=== PATIENT | male | born 1970 | race Caucasian/White ===

== ENCOUNTER 2023-12-21 16:31 | Emergency (ER) | payer SELFPAY ==
[2023-12-21 18:06] LABS: HEMATOCRIT 36.5 % (42.0-52.0); HEMOGLOBIN 12.1 gm/dl (14.0-18.0); MEAN CORPUSCULAR HEMOGLOBIN 27.5 pg (28.0-32.0); MEAN CORPUSCULAR HGB CONC 33.2 g/dl (32.0-36.0); MEAN PLATELET VOLUME 8.3 fl (9.4-12.4); PLATELET COUNT,PLT 350 K/mm3 (150-400); WHITE BLOOD CELL COUNT,WBC 44.31 K/mm3 (3.9-11.3)
[2023-12-21 18:28] LABS: A/G RATIO 0.5 (1-2); ALBUMIN 2.3 g/dl (3.4-5.0); ANION GAP 14.4 (5-15); BILIRUBIN TOTAL 0.7 mg/dL (0.2-1.0); BUN/CREATININE RATIO 32.5 (14-18); CREATININE 0.8 mg/dL (0.7-1.3); EST CRCL DRUG DOSING (CG) 90.44 mL/min; MAGNESIUM 1.3 mg/dL (1.8-2.4); POTASSIUM,K 4.4 mEq/L (3.5-5.1); PROTEIN TOTAL,TP 6.9 g/dl (6.4-8.2)
[2023-12-21 18:32] LABS: CALCIUM 13.5 mg/dL (8.5-10.1)
[2023-12-21 19:07] LABS: BAND PERCENT MAN 0 % (0-10); BASOPHILS PERCENT MAN 0 (0.2-1.2); EOSINOPHILS PERCENT MAN 0 % (0.8-7.0); LYMPHOCYTES PERCENT MAN 51 % (20-40); MONOCYTES PERCENT MAN 0 % (2-10)
[2023-12-21 19:09] LABS: PLATELET COUNT ESTIMATE ADEQUATE
[2023-12-21] MEDS: Sodium Chloride 0.9% 1,000 ML IV ONE (19:14)
[2023-12-21 19:16] LABS: LYMPHOCYTES % ATYPICAL MANUAL 9 %
[2023-12-21] MEDS: Magnesium Sulfate/Water 2 GM in Premix Bag 1 BAG IV ONE (19:16)
[2023-12-21] MEDS: Sodium Chloride 0.9% 10 ML Syringe FLUSH PRN (19:30)
[2023-12-21] MEDS: Sodium Chloride 0.9% 10 ML Syringe FLUSH ONE (19:51)
[2023-12-21] MEDS: Iopamidol 612 MG/ML 100 ML Bottle IVPUSH ONE (19:51)
[2023-12-21] MEDS: Acetaminophen/oxyCODONE 325-5 MG Tab PO ONE (21:19)
[2023-12-22 13:47] LABS: NEUTROPHILS% 23 % (41-71)
== END 2023-12-21 21:28 | disposition home or self-care (01) ==
LOC: JD.ED 16:31
DX: C79.9 Secondary malignant neoplasm of unspecified site (principal); Z79.899 Other long term (current) drug therapy
CPT/HCPCS: 36415; 71260; 72128; 72131; 74177; 80053; 82550; 83735; 85007; 85027; 85046; 96365; 96366; 99284; A9270; J3475; J3490; J7030; Q9967; 99285

== ENCOUNTER 2023-12-31 14:08 | Emergency (ER) | payer SELFPAY ==
[2023-12-31] MEDS: Sodium Chloride 0.9% 1,000 ML IV ONE ×2 (15:01→17:28)
[2023-12-31] MEDS: Pantoprazole 80 MG in Sodium Chloride 0.9% 100 ML IV ONE (15:01)
[2023-12-31] MEDS: Ondansetron 4 MG/2 ML SDV IVPUSH ONE (15:01)
[2023-12-31] MEDS: Albuterol/Ipratropium 3.0-0.5 MG/3 ML Neb Soln NEB ONE (15:01)
[2023-12-31 15:05] LABS: HEMATOCRIT 35.3 % (42.0-52.0); HEMOGLOBIN 11.7 gm/dl (14.0-18.0); IMMATURE GRAN ABSOLUTE AUTO 0.89 K/mm3 (0.00-0.05); IMMATURE GRAN PERCENT AUTO 1.3 % (0.0-0.4); LYMPHOCYTES ABSOLUTE AUTO 41.2 K/mm3 (1.0-4.8); LYMPHOCYTES PERCENT AUTO 59.7 % (24.0-44.0); MEAN CORPUSCULAR HEMOGLOBIN 27.3 pg (28.0-32.0); MEAN CORPUSCULAR HGB CONC 33.1 g/dl (32.0-36.0); MEAN CORPUSCULAR VOLUME 82.3 fl (83.0-99.0); MEAN PLATELET VOLUME 9.1 fl (9.4-12.4); MONOCYTES ABSOLUTE AUTO 1.3 K/mm3 (0.0-0.8); MONOCYTES PERCENT AUTO 1.9 % (0.0-8.0); NEUTROPHILS ABSOLUTE AUTO 25.5 K/mm3 (1.8-7.7); NEUTROPHILS PERCENT AUTO 37.1 % (41.0-71.0); PLATELET COUNT,PLT 385 K/mm3 (150-400); RED BLOOD CELL COUNT 4.29 M/mm3 (4.52-5.90)
[2023-12-31] MEDS: Sodium Chloride 0.9% 10 ML Syringe FLUSH ONE (15:07)
[2023-12-31 15:09] LABS: APPEARANCE,URINE CLEAR (Clear); BILIRUBIN,URINE NEGATIVE (Negative); COLOR,URINE LIGHT YELLOW (Yellow); GLUCOSE,URINE 2+ (Negative); KETONES,URINE 2+ (Negative); LEUKOCYTE ESTERASE,URINE NEGATIVE (Negative); NITRITE,URINE NEGATIVE (Negative); OCCULT BLOOD,URINE 3+ (Negative); PH,URINE 5.5 (5.0-8.0); PROTEIN,URINE NEGATIVE (Negative)
[2023-12-31 15:15] LABS: INR 1.21; PROTHROMBIN TIME 12.7 SECONDS (9.7-12.0)
[2023-12-31 15:16] LABS: BASE EXCESS ARTERIAL 0.5 (-2-2.0); BICARBONATE,ARTERIAL 23.4 meq/L (22.0-26.0); O2 SATURATION ARTERIAL 95.8 % (96.0-97.0); PCO2 ARTERIAL 32.9 mmHg (35.0-45.0)
[2023-12-31] MEDS: cefTRIAXone 1 GM in Sodium Chloride 0.9% 100 ML IV ONE (15:19)
[2023-12-31] MEDS: Diphtheria,Pertussis(Acell),Tetanus Vaccine 0.5 ML Syringe IM ONE (15:20)
[2023-12-31 15:21] LABS: BARBITURATE SCREEN,URINE NEGATIVE (CUTOFF=200); BENZODIAZEPINES SCREEN,URINE NEGATIVE (CUTOFF=150); BUPRENORPHINE SCREEN,URINE NEGATIVE (CUTOFF=10); METHADONE SCREEN, URINE NEGATIVE (CUT0FF=200); METHAMPHETAMINES SCREEN, URINE NEGATIVE (CUTOFF=500); OXYCODONE SCREEN,URINE NEGATIVE (CUT0FF=100); THC SCREEN,URINE 20 NG/ML NEGATIVE (CUTOFF=50)
[2023-12-31 15:29] LABS: A/G RATIO 0.5 (1-2); ALANINE AMINOTRANSFERASE,ALT 27 U/L (16-63); ALBUMIN 2.1 g/dl (3.4-5.0); ALKALINE PHOSPHATASE 185 U/L (46-116); ANION GAP 13.4 (5-15); ASPARTATE AMNIOTRANSFERASE,AST 79 U/L (15-37); BILIRUBIN TOTAL 0.9 mg/dL (0.2-1.0); BLOOD UREA NITROGEN,BUN 29 mg/dL (7-18); BUN/CREATININE RATIO 26.4 (14-18); CARBON DIOXIDE,CO2 28 mEq/L (21-32); CHLORIDE,CL 88 mEq/L (98-107); CREATININE 1.1 mg/dL (0.7-1.3); ESTIMATED GFR 81 mL/min (>60); LIPASE 13 U/L (16-77); MAGNESIUM 1.6 mg/dL (1.8-2.4); POTASSIUM,K 4.4 mEq/L (3.5-5.1); PROTEIN TOTAL,TP 6.8 g/dl (6.4-8.2); SODIUM,NA 125 mEq/L (136-145); TROPONIN I HIGH SENSITIVITY 5 pg/mL (<=76)
[2023-12-31 15:33] LABS: CORONAVIRUS COVID-19 NAA NEGATIVE (NEGATIVE); INFLUENZA A NAA NEGATIVE (NEGATIVE); RESPIRATORY SYNCYTIAL VIR NAA NEGATIVE (NEGATIVE)
[2023-12-31 15:36] LABS: GLUCOSE RANDOM 620 mg/dL (70-99); LACTIC ACID 2.2 mmol/L (0.4-2.0)
[2023-12-31 15:37] LABS: CALCIUM 13.1 mg/dL (8.5-10.1)
[2023-12-31] MEDS ORDERED: Magnesium Sulfate (4.06 MEQ/ML) 5 GM/10 ML SDV IV ONE (15:45)
[2023-12-31 15:46] LABS: RETICULOCYTE COUNT PERCENT 2.15 % (0.50-2.00)
[2023-12-31 15:53] LABS: BACTERIA,URINE FEW /hpf (FEW); MUCUS,URINE NOT SEEN /hpf (FEW); SQUAMOUS EPITHELIAL CELLS,UR 0-5 /hpf (0-5); WBC,URINE 0-5 /hpf (0-5)
[2023-12-31 16:07] LABS: SLIDE REVIEW ABNORMAL SMEAR
[2023-12-31] MEDS: Iopamidol 612 MG/ML 100 ML Bottle IVPUSH ONE (16:14)
[2023-12-31 16:37] LABS: AMPHETAMINES SCREEN, URINE NEGATIVE (CUTOFF=500)
[2023-12-31] MEDS: Furosemide 40 MG/4 ML VIAL IVPUSH ONE (16:45)
[2023-12-31] MEDS: Azithromycin 500 MG in Sodium Chloride 0.9% 250 ML IV ONE (16:48)
[2023-12-31] MEDS: Magnesium Sulfate/Water 50 ML IV ONE (16:49)
[2023-12-31] MEDS: Insulin Regular in 0.9 % NACL 100 ML IV SCH (16:55)
[2023-12-31] MEDS: Sodium Chloride 0.9% 500 ML IV ONE (17:02)
[2023-12-31] MEDS: Calcitonin (Salmon) 200 Units/ML 2 ML MDV SUBCUT ONE (17:27)
[2024-01-02 08:46] LABS: NEUTROPHILS% 41 % (41-71)
== END 2023-12-31 18:35 ==
LOC: JD.ED 14:08
DX: S00.01XA Abrasion of scalp, initial encounter (principal); A41.9 Sepsis, unspecified organism; E11.10 Type 2 diabetes mellitus with ketoacidosis without coma; E83.52 Hypercalcemia; J90 Pleural effusion, not elsewhere classified; E86.9 Volume depletion, unspecified; C79.9 Secondary malignant neoplasm of unspecified site; K92.2 Gastrointestinal hemorrhage, unspecified; R41.82 Altered mental status, unspecified; E83.42 Hypomagnesemia; Z23 Encounter for immunization; Z79.899 Other long term (current) drug therapy; W18.39XA Other fall on same level, initial encounter; Y92.002 Bathroom of unspecified non-institutional (private) residence as the place of occurrence of the external cause
CPT/HCPCS: 0241U; 36415; 36600; 51702; 70450; 71045; 71260; 72125; 74177; 80053; 80306; 80307; 81001; 82140; 82803; 82947; 83605; 83690; 83735; 83880; 84484; 85025; 85045; 85610; 86850; 86900; 86901; 87040; 87045; 87046; 87899; 90471; 90715; 93005; 94640; 96361; 96365; 96367; 96368; 96372; 96375; 99285; J0456; J0630; J0696; J1815; J1940; J2405; J2470; J3475; J3490; J7030; J7050; Q9967; 93010; J7620-GY